=== PATIENT | male | born 1980 | race Caucasian/White ===

== ENCOUNTER 2021-01-15 21:16 | Emergency (ER) | payer OTHER ==
--- OUTSIDE RECORDS SUMMARY | 2021-01-15 21:19 | XMS REPORT | Continuity of Care Document ---
:1980 Author Organization [facility] Address [address] [place] [address] Dr. Kumar. [address] [place] [address] Care Team Providers Name Role Phone Pcp, Does Not Have A Primary Care Physician Emma Short MD Attending Clinician Nurse, [facility] Attending Clinician Unavailable Abdias RAMOS Attending Clinician Emma SHORT Attending Clinician Unavailable Jessica CARTY Attending Clinician Unavailable Payers Payer Name Policy Type Policy Number Effective Date Expiration Date S ource Problems Condition Condition Condition Status Onset Resolution Last Treating Co mments Source Name Details Category Date Date Treatment Clinician Date No known No known Disease Unive rs active active ity of problems problems [facility] Allergies, Adverse Reactions, Alerts Allergy Allergy Status Severity Reaction(s) Onset Inactive Treating Comm ents Source Name Type Date Date Clinician NO KNOWN Drug Active Univers ALLERGIE Class ity of S [facility] Social History Social Habit Start Date Stop Date Quantity Comments Source Exposure to Not sure [facility] SARS-CoV-2 (event) Medica l Branch Tobacco use and 2020-12-07 2020-12-07 Never used [facility] exposure 00:00:00 00:00:00 [facility] Tobacco Comment 2020-12-07 2020-12-07 Vape [facility] 00:00:00 00:00:00 [facility] Sex Ass[birth year] At [birth year] [facility] 00:00:00 00:00:00 [facility] Smoking Status Start Date Stop Date Source Unknown if ever smoked [facility] Current every day smoker 2020-12-07 00:00:00 Uni versity of [facility] Medications Ordered Filled Start Stop Current Ordering Indication Dosage Frequency Signature Comments Components Source Medication Medication Date Date Medication? Clinician (SIG) Name Name morpHINE 2020-02 No 4mg 4 mg, Slow Un lele injection 4 0-11 10-11 IV Push, ity of mg 01:45: 00:45 ONCE, 1 [place] 00 :00 dose, On Medical [place] [facility] 12/07/20 at 2044, STAT NaCl 0.9% 2020-02 No 500mL at 999 Univ ers (NS) bolus 0-11 10-11 mL/hr, 500 it y of infusion 01:45: 01:30 mL, IV [place] 500 mL 00 :00 Piggyback, [facility] ONCE, 1 Branch dose, On [place] 12/07/20 at 2044, STAT piperacilli 2020-02 No 3.375g 3.375 g, Univers n-tazobacta 0-11 10-10 IV ity of m (ZOSYN) 00:15: 23:45 [place], [place] 3.375 g in 00 :00 ONCE, 1 Medica l NaCl 0.9% dose, On Branch (NS) 100 mL Sun MINI-BAG 12/07/20 at 1915, Administer over 30 Minutes, 100 mL
Reas on for Anti-Infec tive: Documented Infection< br>Documen karishma Infection Site: Abdominal& lt;br>Dura tion of Therapy: 7 days ondansetron 2020-02 No 4mg 4 mg, Slow Univers (ZOFRAN 0-11 10-10 IV Push, ity of (PF)) 00:15: 23:14 ONCE, 1 [place] injection 4 00 :00 dose, On Medi [facility] 12/07/20 at 1915, CECE morpHINE 2020-02- No 4mg 4 mg, Slow Un lele injection 4 0-11 10-10 IV Push, ity of mg 00:15: 23:14 ONCE, 1 [place] 00 :00 dose, On Medical [facility] 12/07/20 at 1915, STAT iopamidol 2020-02- No [id number] 100mL 100 mL, Univers (ISOVUE 0-10 10-10 Intravenou ity o f 370-500 mL) 23:34: 23:35 s, ONCE, 1 [place] injection 00 :00 dose, On Medica l 100 mL [place] Branch 12/07/20 at 1900, Routine No known 2020-02 No Univers medications 0-10 ity of 17:43: [place] [facility] Branch ciprofloxac 2020-02 Yes [id number] 500mg Take 1 Univers in HCl 500 0-10 tablet by ity of mg tablet 00:00: mouth 2 [place] 00 (two) Medical times Branch daily. metroNIDAZO 2020-02 Yes [id number] 500mg Take 1 Univers LE 500 mg 0-10 tablet by ity o f tablet 00:00: mouth 2 [place] 00 (two) Medical times Branch daily. proMETHazin 2020-02 Yes [id number] 25mg Take 1 U nivers e 25 mg 0-10 tablet by ity of tablet 00:00: mouth [place] 00 every 6 Medical (six) Branch hours as needed for Nausea and Vomiting (N/V). Vital Signs Vital Name Observation Time Observation Value Comments Source Systolic blood 2020-12-08 01:01:00 122 mm[Hg] Univer sity [facility] Diastolic blood 2020-12-08 01:01:00 88 mm[facility]Hg] [facility] 2020-12-08 01:01:00 71 /min [facility] Respiratory rate 2020-12-08 01:01:00 18 /min [facility] Oxygen saturation in 2020-12-08 01:01:00 96 /min [facility] Arterial blood by [facility] Pulse oximetry Branch Body height 2020-12-08 00:08:00 177.8 cm [facility] Body weight 2020-12-08 00:08:00 88.451 kg [facility] BMI 2020-12-08 00:08:00 27.98 kg/m2 [facility] Body temperature 2020-12-08 00:02:00 36.94 [facility] 2020-12-07 22:43:00 129 mm[Hg] Univer sity of [facility] Diastolic blood 2020-12-07 22:43:00 88 mm[Hg] [facility] rate 2020-12-07 22:43:00 85 /min [facility] Body temperature 2020-12-07 22:43:00 36.94 [facility] Respiratory rate 2020-12-07 22:43:00 18 /min [facility] Body height 2020-12-07 22:43:00 177.8 cm [facility] Body weight 2020-12-07 22:43:00 88.451 kg [facility] BMI 2020-12-07 22:43:00 27.98 kg/m2 [facility] Oxygen saturation in 2020-12-07 22:43:00 97 /min [facility] Arterial blood by [facility] Pulse oximetry Branch Procedures Procedure Date / Time Performed Performing Clinician Denise self CT ABDOMEN PELVIS W 2020-12-07 23:44:43 Guzman Short [facility] CONTRAST [facility] COVID-19 (ID NOW RAPID 2020-12-07 23:11:00 Guzman Short [facility] TESTING) Medical Branch LIPASE 2020-12-07 23:07:00 Guzman Short [facility] COMP. METABOLIC PANEL 2020-12-07 23:07:00 Guzman Short [facility] ([id number]) [facility] CBC WITH DIFF 2020-12-07 23:07:00 Guzman Short [facility] URINALYSIS 2020-12-07 23:07:00 Guzman Short [facility] NOTICE OF PRIVACY 2020-12-07 22:55:20 Doctor Unassigned, No [facility] PRACTICES Name Medical Branch CONSENT/REFUSAL FOR 2020-12-07 22:54:54 Doctor Unassigned, No [facility] DIAGNOSIS AND Name Medical [place] TREATMENT Encounters Start End Encounter Admission Attending Care Care Encounter Source Date/Time Date/Time Type Type Clinicians Facility Department ID 2020-12-07 2020-12-07 Emergency MANISHA Short [id number] [facility] 17:57:00 20:49:00 [id number] [id number] Medi sherron 084 Branch 2020-12-07 2020-12-07 Nurse Nurse, Phong [facility] [id number] Univers 17:38:13 17:58:13 Visit Abdias [facility] [id number] [facility] [id number] Mumtaz as Levi?Blea [id number] Me dical [address] Medical Office Building 2020-12-07 2020-12-07 Emergency X SHORT, [facility] ERT [id number] Univers 17:57:00 17:57:00 GUZMAN [facility] 2020-12-07 2020-12-07 Outpatient R [facility] [id number] Univers 17:45:00 17:45:00 [id number] [facility] 2020-12-07 2020-12-07 [facility] [id number] Univers 17:20:00 17:20:00 MANJINDER schwarz o f [facility] Results Test Description Test Time Test Comments Results Result Comments Source COMP. METABOLIC PANEL (30061) 2020-12-08 00:02:21 Test Item Value Reference Range Interpretation Comme nts NA (test code = 8117230961) 138 mmol/L 135-145 K (test code = 9003439965) 4.3 mmol/L 3.5-5.0 CL (test code = 3008685935) 106 mmol/L 98-108 CO2 TOTAL (test code = 26 mmol/L 23-31 1618212750) AGAP (test code = 5530182961) 2-16 BUN (test code = 1188617963) 12 mg/dL 7-23 GLUCOSE (test code = 1393308176) 108 mg/dL 70-110 CREATININE (test code = 0.85 mg/dL 0.60-1.25 9834458617) TOTAL BILI (test code = 0.5 mg/dL 0.1-1.5 0590896300) CALCIUM (test code = 5891551538) 9.5 mg/dL 8.6-10.6 T PROTEIN (test code = 7.5 g/dL 6.3-8.2 8846662848) ALBUMIN (test code = 7085885302) 4.3 g/dL 3.5-5.0 ALK PHOS (test code = 2996965774) 82 U/L 34-122 ALTv (test code = 1742-6) 34 U/L 5-50 AST(SGOT) (test code = 25 U/L 13-40 9073012754) eGFR (test code = 5061127483) mL/min/1.73m2 ELLIS (test code = ELLIS) Association of Glomerular Filtration Rate (GFR) and Staging of Kidney Disease* + +--------- + ----+| GFR (mL/min/1.73 m2) ?| With Kidney Damage ?| ?Without Kidney Damage+ +--- + +| ?>90 ?| ?Stage one ?| ? Normal ?+ +-------- + -----+| ?60-89 ?| ?Stage two ?| ? Decreased GFR ? + +--------- + ----+| ?30-59 ?| ?Stage three ?| ? Stage three ? + +--------- + ----+| ?15-29 ?| ?Stage four ? | ? Stage four ?+ +-------- + -----+| ?<15 (or dialysis) ? ?| ?Stage five ? | ? Stage five ?+ +-------- + -----+ *Each stage assumes the associated GFR level has been in effect for at least three months. ?Stages 1 to 5, with or without kidney disease, indicate chronic kidney disease. Notes: Determination of stages one and two (with eGFR >59mL/min/1.73 m2) requires estimation of kidney damage for at least three months as defined by structural or functional abnormalities of the kidney, manifested by either:Pathological abnormalities or Markers of kidney damage (including abnormalities in the composition of the blood or urine or abnormalities in imaging tests). [facility]41 Test Item Value Reference Range Interpretation Comments LIPASE (test code = 6666281238) 85 U/L 0-220 Lab Interpretation (test code = Normal 24586-9) [facility] [id number] 23:31:16 Test Item Value Reference Range Interpretation Comments WBC (test code = See_Comment [Automated 6690-2) message] The sy stem which generated this result transmitted reference range : 4.20 - 10.70 10*3/?L. The reference range was not used to interpret this result as normal/abnormal . RBC (test code = See_Comment H [Automated 789-8) message] The sy stem which generated this result transmitted reference range : 4.26 - 5.52 10*6/?L. The reference range was not used to interpret this result as normal/abnormal . HGB (test code = 16.2 g/dL 12.2-16.4 718-7) HCT (test code = 47.1 % 38.4-49.3 4544-3) MCV (test code = 84.4 fL 81.7-95.6 787-2) MCH (test code = 29.0 pg 26.1-32.7 785-6) MCHC (test code = 34.4 g/dL 31.2-35.0 786-4) RDW-SD (test code = 38.2 fL 38.5-51.6 L 50242-5) RDW-CV (test code = 12.5 % 12.1-15.4 788-0) PLT (test code = See_Comment [Automated 777-3) message] The sy stem which generated this result transmitted reference range : 150 - 328 10*3/ ?L. The reference r yamilet was not used to interpret this result as normal/abnormal . MPV (test code = 10.0 fL 9.8-13.0 97904-2) NRBC/100 WBC (test See_Comment [Automat ed code = 3575740530) message] The system which generated this result transmitted reference range : 0.0 - 10.0 /100 WBCs. The refer ence range was not u sed to interpret th is result as normal/abnormal . NRBC x10^3 (test code <0.01 See_Comment [Auto mated = 7549122775) message] The s ystem which generated this result transmitted reference range : 10*3/?L. The reference range was not used to interpret this result as normal/abnormal . GRAN MAT (NEUT) % 70.4 % (test code = 770-8) IMM GRAN % (test code 0.60 % = 3066415542) LYMPH % (test code = 17.3 % 736-9) MONO % (test code = 10.6 % 5905-5) EOS % (test code = 0.6 % 713-8) BASO % (test code = 0.5 % 706-2) GRAN MAT x10^3(ANC) 6.84 10*3/uL 1.99-6.95 (test code = 7497425397) IMM GRAN x10^3 (test 0.06 10*3/uL 0.00-0.06 code = 3923942409) LYMPH x10^3 (test code 1.68 10*3/uL 1.09-3.23 = 731-0) MONO x10^3 (test code 1.03 10*3/uL 0.36-1.02 H = 742-7) EOS x10^3 (test code = 0.06 10*3/uL 0.06-0.53 711-2) BASO x10^3 (test code 0.05 10*3/uL 0.01-0.09 = 704-7) Lab Interpretation Abnormal (test code = 28644-2) [facility]"
[2021-01-15] MEDS ORDERED: MORPHINE 4 MG/ML SYR ONE (21:50)
[2021-01-15] MEDS ORDERED: ONDANSETRON 4 MG/2 ML VIAL ONE ×2 (21:51→21:57)
[2021-01-15] MEDS ORDERED: NA CHLORIDE 0.9% 1,000 ML ONE (21:52)
[2021-01-15 22:21] LABS: Basophils % 0.2 % (0-1.3); Hematocrit 43.8 % (39.6-49.0); Lymphocytes % 11.8 % (15.3-44.8); MPV 7.6 fL (7.6-11.3); RBC Red Blood Cell Count 5.09 M/uL (4.33-5.43)
[2021-01-15 22:27] LABS: Urine Blood Trace-intact (Negative); Urine Glucose Negative (Negative); Urine Protein Negative (Negative); Urine Specific Gravity >=1.030 (1.005-1.030)
[2021-01-15 22:39] LABS: Albumin 3.5 g/dL (3.4-5.0); Bilirubin Direct 0.1 mg/dL (0-0.2); Bilirubin Total 0.6 mg/dL (0.2-1.0); Potassium 3.9 mmol/L (3.5-5.1)
[2021-01-15 22:43] LABS: Barbiturates NEGATIVE (NEGATIVE); Benzodiazepines NEGATIVE (NEGATIVE); Cocaine NEGATIVE (NEGATIVE); METHAMPHETAM NEGATIVE (NEGATIVE); Methadone NEGATIVE (NEGATIVE); Opiates NEGATIVE (NEGATIVE); Phencyclidine NEGATIVE (NEGATIVE); THC Cannibis NEGATIVE (NEGATIVE)
[2021-01-16] MEDS ORDERED: MORPHINE 4 MG/ML SYR ONE (00:03)
[2021-01-16] MEDS ORDERED: Levofloxacin 750mg IV 750 MG/150 ML BAG IV ONE (00:11)
[2021-01-16] MEDS ORDERED: METRONIDAZOLE 500mg IVPB 500 MG/100 ML BAG IV ONE (00:12)
--- NOTE | 2021-01-16 01:42 | EDPHYS ---
Physician Documentation [facility] Name: Jaime Darden Age: 41 yrs Sex: Male : 1980 Arrival Date: 01/15/2021 Time: 21:21 Bed 17 Private MD: ED Physician Wilfredo Fonseca HPI: 01/15 21:53 This 41 yrs old Male presents to ER via Ambulatory with complaints of Abdominal Pain. mh7 21:53 The patient presents with abdominal pain in the lower abdomen. Onset: The mh7 symptoms/episode began/occurred today, at 11:00. The symptoms do not radiate. Associated signs and symptoms: Pertinent positives: dysuria, nausea, Pertinent negatives: anorexia, blood in stools, chest pain, constipation, diarrhea, fever, headache, hematuria, palpitations, shortness of breath, testicular pain, vomiting, vomiting blood. The symptoms are described as intermittent, vague, waxing/waning. Modifying factors: The symptoms are alleviated by nothing, the symptoms are aggravated by nothing. Severity of pain: At its worst the pain was moderate today, in the emergency department the pain is unchanged. Historical: - Allergies: 22:10 Tramadol HCl; cc4 - Home Meds: 21:27 Flexeril 10 mg Oral tab once daily [Active]; ld1 - PMHx: 21:27 tension headaches; Diverticulitis; ld1 - PSHx: 21:27 Appendectomy; ld1 - Immunization history:: Adult Immunizations up to date, Client reports receiving the 2nd dose of the Covid vaccine. - Social history:: Smoking status: Patient reports the use of cigarette tobacco products, denies chronic smoking, but will smoke occasionally, Patient/guardian denies using alcohol, street drugs. ROS: 21:53 Constitutional: Negative for fever, chills, and weight loss, Eyes: Negative for injury, mh7 pain, redness, and discharge, ENT: Negative for injury, pain, and discharge, Neck: Negative for injury, pain, and swelling, Cardiovascular: Negative for chest pain, palpitations, and edema, Respiratory: Negative for shortness of breath, cough, wheezing, and pleuritic chest pain, Back: Negative for injury and pain, : Negative for injury, bleeding, discharge, and swelling, MS/Extremity: Negative for injury and deformity, Skin: Negative for injury, rash, and discoloration, Neuro: Negative for headache, weakness, numbness, tingling, and seizure, Psych: Negative for depression, anxiety, suicide ideation, homicidal ideation, and hallucinations, Allergy/Immunology: Negative for hives, rash, and allergies, Endocrine: Negative for neck swelling, polydipsia, polyuria, polyphagia, and marked weight changes, Hematologic/Lymphatic: Negative for swollen nodes, abnormal bleeding, and unusual bruising. Exam: 21:53 Head/Face: Normocephalic, atraumatic. Eyes: Pupils equal round and reactive to light, mh7 extra-ocular motions intact. Lids and lashes normal. Conjunctiva and sclera are non-icteric and not injected. Cornea within normal limits. Periorbital areas with no swelling, redness, or edema. Neck: Trachea midline, no thyromegaly or masses palpated, and no cervical lymphadenopathy. Supple, full range of motion without nuchal rigidity, or vertebral point tenderness. No Meningismus. Chest/axilla: Normal chest wall appearance and motion. Nontender with no deformity. No lesions are appreciated. Cardiovascular: Regular rate and rhythm with a normal S1 and S2. No gallops, murmurs, or rubs. Normal PMI, no JVD. No pulse deficits. Respiratory: Lungs have equal breath sounds bilaterally, clear to auscultation and percussion. No rales, rhonchi or wheezes noted. No increased work of breathing, no retractions or nasal flaring. 21:53 Back: No spinal tenderness. No costovertebral tenderness. Full range of motion. Skin: Warm, dry with normal turgor. Normal color with no rashes, no lesions, and no evidence of cellulitis. MS/ Extremity: Pulses equal, no cyanosis. Neurovascular intact. Full, normal range of motion. Neuro: Awake and alert, GCS 15, oriented to person, place, time, and situation. Cranial nerves II-XII grossly intact. Motor strength 5/5 in all extremities. Sensory grossly intact. Cerebellar exam normal. Normal gait. Psych: Awake, alert, with orientation to person, place and time. Behavior, mood, and affect are within normal limits. 21:53 Constitutional: The patient appears in no acute distress, alert, awake, uncomfortable. 21:53 Abdomen/GI: Inspection: abdomen appears normal, Bowel sounds: normal, in all quadrants, Palpation: moderate abdominal tenderness, in all quadrants, mass, is not appreciated, rebound tenderness, is not appreciated, voluntary guarding, is not appreciated, involuntary guarding, is not appreciated, no appreciated organomegaly, Rectal exam: the exam is deferred, because of patient request, Indicators: McBurney's point is not tender, Velasquez's sign is negative, Rovsing's sign is negative, Obturator sign is negative, Psoas sign is negative, Liver: no appreciated palpable abnormalities, Hernia: not appreciated. Vital Signs: 21:25 BP 133 / 94; Pulse 98; Resp 20; Temp 99.4(TE); Pulse Ox 97% on R/A; Weight 90.72 kg; ld1 Height 5 ft. 10 in. (177.80 cm); Pain 9/10; 21:58 BP 130 / 89; Pulse 90; Resp 18; Pulse Ox 99% on R/A; cc4 22:30 BP 118 / 78; Pulse 87; Resp 18; Temp 99.1(O); Pulse Ox 99% on R/A; cc4 23:30 BP 117 / 80; Pulse 99; Resp 20; Pulse Ox 98% on R/A; cc4 01/16 00:30 BP 125 / 81; Pulse 89; Resp 18; Pulse Ox 96% on R/A; cc4 01:30 BP 120 / 86; Pulse 91; Resp 20; Pulse Ox 96% on R/A; cc4 02:30 BP 111 / 65; Pulse 89; Resp 18; Pulse Ox 96% on R/A; cc4 03:33 BP 105 / 69; Pulse 99; Resp 18; Temp 99.1(O); Pulse Ox 96% on R/A; cc4 01/15 21:25 Body Mass Index 28.70 (90.72 kg, 177.80 cm) ld1 MDM: 00:55 Physician consultation: Michael Rod MD was contacted at 00:45, regarding patient's mh7 condition, after a discussion of the case, a recommendation for transfer for higher level of care is made, Recommends transfer for treatment by a colorectal surgeon.. 01:40 Differential diagnosis: bowel obstruction, diverticulitis, non-specific abd pain, mh7 pancreatitis, Ureterolithiasis, urinary tract infection. Data reviewed: vital signs, nurses notes, lab test result(s), CBC, electrolytes, urinalysis, radiologic studies, CT scan. Data interpreted: Pulse oximetry: on room air is 99 %. Interpretation: normal. Counseling: I had a detailed discussion with the patient and/or guardian regarding: the historical points, exam findings, and any diagnostic results supporting the discharge/admit diagnosis, lab results, radiology results, the need to transfer to another facility, for higher level of care. 01:42 Patient medically screened. [facility] 01/15 21:44 Order name: Basic Metabolic Panel; Complete Time: 22:58 [facility] 01/15 21:44 Order name: CBC with Diff; Complete Time: 22:58 [facility] 01/15 21:44 Order name: Hepatic Function; Complete Time: :58 [facility] 01/15 21:44 Order name: Lipase; Complete Time: 22:58 [facility] 01/15 21:44 Order name: UDS; Complete Time: 22:58 [facility] 01/15 22:27 Order name: Urine Dipstick-Ancillary; Complete Time: 22:58 EDNM 01/15 21:44 Order name: CT Abd/Pelvis - IV Contrast Only [facility] 01/16 00:56 Order name: COVID-19 SARS RT PCR (Document "Date of Onset" if Symptomatic); Complete la1 Time: 02:05 01/15 21:44 Order name: IV Saline Lock; Complete Time: 22:17 [facility] 01/15 21:44 Order name: Labs collected and sent; Complete Time: 22:17 [facility] 01/15 21:44 Order name: Urine Dipstick-Ancillary (obtain specimen); Complete Time: 22:18 [facility] 01/15 21:44 Order name: EKG; Complete Time: 21:45 [facility] 01/15 21:44 Order name: EKG - Nurse/Tech; Complete Time: 22:17 [facility] Administered Medications: 01/15 22:10 Drug: NS 0.9% 1000 ml Route: IV; Rate: 1000 ml; Site: right antecubital; cc4 22:10 Drug: morphine 4 mg Route: IVP; Site: right antecubital; cc4 22:30 Follow up: Response: No adverse reaction; Pain is decreased cc4 22:10 Drug: Zofran (Ondansetron) 4 mg Route: IVP; Site: right antecubital; cc4 22:30 Follow up: Response: No adverse reaction cc4 01/16 00:10 Drug: morphine 4 mg Route: IVP; Site: right antecubital; cc4 00:30 Follow up: Response: No adverse reaction; Pain is decreased cc4 00:15 Drug: Flagyl (metroNIDAZOLE) 500 mg Volume: 100 ml; Route: IVPB; Rate: 200 ml/hr; cc4 Infused Over: 30 mins; Site: right antecubital; 00:50 Follow up: Response: No adverse reaction; IV Status: Completed infusion; IV Intake: cc4 100ml 00:50 Drug: LevaQUIN (levofloxacin) 750 mg Route: IVPB; Site: right antecubital; cc4 02:00 Follow up: Response: No adverse reaction; IV Status: Completed infusion; IV Intake: cc4 150ml 02:45 Drug: Dilaudid (HYDROmorphone) 1 mg Route: IVP; Site: right antecubital; cc4 03:33 Follow up: Response: No adverse reaction; Pain is decreased cc4 Disposition Summary: 01/16/21 01:42 Transfer Ordered Transfer Location: [place] [address] Reason: Higher level of care [facility] Condition: Stable [facility] Problem: new [facility] Symptoms: are unchanged [facility] Accepting Physician: Dr. Pena(01/16/21 05:08) cc4 Diagnosis - Diverticulitis of large intestine with perforation and abscess [facility] Forms: - Medication Reconciliation Form 7 - SBAR form 7 Signatures: Dispatcher [employer] Wilfreod Pemberton MD MD 7 Silvia Pruett RN RN ld1 Lise Thomas RN RN cc4 Corrections: (The following items were deleted from the chart) 01/15 22:45 21:27 Allergies: No Known Allergies; ld1 cc4 01/16 01:19 00:58 CORONAVIRUS+MR.LAB.BRZ ordered. EDNM EDNM 05:08 01:42 Dr. Pena 7 4
--- NOTE | 2021-01-16 01:42 | ER ---
Nurse's Notes [facility] Name: Jaime Darden Age: 41 yrs Sex: Male : 1980 Arrival Date: 01/15/2021 Time: 21:21 Bed 17 Private MD: Diagnosis: Diverticulitis of large intestine with perforation and abscess Presentation: 01/15 21:25 Chief complaint: Patient states: lower abdominal pain beginning today at 1100. Pt ld1 reports having a history of diverticulitis. Coronavirus screen: Client presents with at least one sign or symptom that may indicate coronavirus-19. Standard/surgical mask placed on the client. Ebola Screen: No symptoms or risks identified at this time. Initial Sepsis Screen: Does the patient meet any 2 criteria? No. Patient's initial sepsis screen is negative. Does the patient have a suspected source of infection? No. Patient's initial sepsis screen is negative. Risk Assessment: Do you want to hurt yourself or someone else? Patient reports no desire to harm self or others. Onset of symptoms was January 15, 2021. 21:25 Method Of Arrival: Ambulatory ld1 21:25 Acuity: FER 3 ld1 Triage Assessment: 21:27 General: Appears in no apparent distress. uncomfortable, Behavior is calm, cooperative, ld1 appropriate for age. Pain: Complains of pain in right lower quadrant and left lower quadrant Pain does not radiate. Pain currently is 9 out of 10 on a pain scale. Quality of pain is described as stabbing, throbbing, Pain began suddenly, Is continuous. EENT: No signs and/or symptoms were reported regarding the EENT system. Neuro: Level of Consciousness is awake, alert, obeys commands, Oriented to person, place, time, situation, Appropriate for age. Cardiovascular: Capillary refill < 3 seconds Patient's skin is warm and dry. Respiratory: Airway is patent Respiratory effort is even, unlabored, Respiratory pattern is regular, symmetrical. GI: Abdomen is flat, non-distended, Reports lower abdominal pain, constipation. : No signs and/or symptoms were reported regarding the genitourinary system. Derm: No signs and/or symptoms reported regarding the dermatologic system. Musculoskeletal: No signs and/or symptoms reported regarding the musculoskeletal system. Historical: - Allergies: 22:10 Tramadol HCl; cc4 - Home Meds: 21:27 Flexeril 10 mg Oral tab once daily [Active]; ld1 - PMHx: 21:27 tension headaches; Diverticulitis; ld1 - PSHx: 21:27 Appendectomy; ld1 - Immunization history:: Adult Immunizations up to date, Client reports receiving the 2nd dose of the Covid vaccine. - Social history:: Smoking status: Patient reports the use of cigarette tobacco products, denies chronic smoking, but will smoke occasionally, Patient/guardian denies using alcohol, street drugs. Screenin:10 Abuse screen: Denies threats or abuse. Nutritional screening: No deficits noted. cc4 Tuberculosis screening: No symptoms or risk factors identified. Fall Risk None identified. Assessment: 22:00 General: Appears distressed, uncomfortable, Behavior is cooperative, anxious, Eyes cc4 reddened; appears to have been crying.. Pain: Complains of pain in abdomen Pain does not radiate. Pain currently is 9 out of 10 on a pain scale. at worst was 10 out of 10 on a pain scale. level that patient reports is acceptable is 0 out of 10 on a pain scale. Quality of pain is described as crampy, sharp. Neuro: No deficits noted. Level of Consciousness is awake, alert, obeys commands, Oriented to person, place, time, situation. Cardiovascular: No deficits noted. Heart tones S1 S2 Rhythm is sinus rhythm. Respiratory: No deficits noted. Airway is patent Respiratory effort is even, unlabored, Respiratory pattern is regular, symmetrical. GI: Abdomen is flat, non-distended, Bowel sounds present X 4 quads. Abd is soft X 4 quads Abdomen is tender to palpation in umbilical area and right upper quadrant Patient currently denies diarrhea, nausea, vomiting, reports h/o diverticulitis. : No signs and/or symptoms were reported regarding the genitourinary system. EENT: Eyes are tearing on outer aspect of conjuctiva of right eye, iris of right eye, inner aspect of conjuctiva of right eye, outer aspect of conjuctiva of left eye, iris of left eye and inner aspect of conjunctiva of left eye Reddened.. Derm: No deficits noted. Skin is intact. 22:00 Musculoskeletal: No deficits noted. Capillary refill < 3 seconds, Range of motion: cc4 intact in all extremities. 22:10 Reassessment: No changes from previously documented assessment. IV hung to saline lock cc4 right AC \\T\\ infusing \\T\\ bolus rate with no s/sx's of infiltration; Morphine 4 mg \\T\\ zofran 4 mg given IVP. 22:30 Reassessment: Patient states feeling better. reports decreasing abdominal pain to 6/10 cc4 on pain scale.. 22:45 Reassessment: To CT via stretcher. cc4 23:00 Reassessment: Returned from CT via stretcher. cc4 01/16 00:10 Reassessment: Awake \\T\\ reports increasing pain 9/10 on pain scale of abdomen; morphine 4 cc4 mg given slow IVP as ordered. 00:15 Reassessment: Reports abdominal pain decreasing to 8/10 on pain scale; Flagyl 500 mg cc4 hung to saline lock right AC \\T\\ infusing \\T\\ 200 ml/hr/pump with no s/sx's of infiltration. 00:50 Reassessment: Awake \\T\\ reports abd. pain has decreased to 7/10 on pain scale; IVPB cc4 Flagyl infused; IVPB Levaquin 750 mg hung \\T\\ infusing \\T\\ 150 ml/hr/pump with no s/sx's of infiltration; VSS. 01:50 Reassessment: IVPB Levaquin infused; resting quietly; NAD. cc4 02:45 Reassessment: c/o abdominal pain 9/10 on pain scale; Dilaudid 1 mg given IVP; [facility] instructed on transfer to [facility] with v/u \\T\\ transfer via ambulance form signed; VSS. 02:45 Reassessment: Report telephoned to Eugenia Mcintyre RN of [facility] in [address] 03:33 Reassessment: Awake/alert; reports abdominal pain decreasing to 7/10 on pain scale; [address] [facility] arrived \\T\\ here transferring pt to [facility]; report given to manager laundry; VSS. Vital Signs: 01/15 21:25 BP 133 / 94; Pulse 98; Resp 20; Temp 99.4(TE); Pulse Ox 97% on R/A; Weight 90.72 kg; ld1 Height 5 ft. 10 in. (177.80 cm); Pain 9/10; 21:58 BP 130 / 89; Pulse 90; Resp 18; Pulse Ox 99% on R/A; cc4 22:30 BP 118 / 78; Pulse 87; Resp 18; Temp 99.1(O); Pulse Ox 99% on R/A; cc4 23:30 BP 117 / 80; Pulse 99; Resp 20; Pulse Ox 98% on R/A; cc4 01/16 00:30 BP 125 / 81; Pulse 89; Resp 18; Pulse Ox 96% on R/A; cc4 01:30 BP 120 / 86; Pulse 91; Resp 20; Pulse Ox 96% on R/A; cc4 02:30 BP 111 / 65; Pulse 89; Resp 18; Pulse Ox 96% on R/A; cc4 03:33 BP 105 / 69; Pulse 99; Resp 18; Temp 99.1(O); Pulse Ox 96% on R/A; cc4 01/15 21:25 Body Mass Index 28.70 (90.72 kg, 177.80 cm) ld1 ED Course: 01/15 21:21 Patient arrived in ED. bp1 21:27 Triage completed. ld1 21:27 Arm band placed on left wrist. ld1 21:30 Wilfredo Fonseca MD is Attending Physician. mh7 21:42 Lise Thomas, ROXANA is Primary Nurse. cc4 22:15 Initial lab(s) drawn, by mt, sent to lab. Inserted saline lock: 20 gauge in right 5 antecubital area, using aseptic technique. Blood collected. 22:16 Patient has correct armband on for positive identification. Bed in low position. Call [facility] light in reach. Side rails up X 1. Warm blanket given. investigative writer on. Pulse ox on. NIBP on. 22:16 Urine collected: clean catch specimen, clear, EKG done, by ED staff, reviewed by [facility] Wilfredo Fonseca MD. 22:17 Basic Metabolic Panel Sent. 5 22:17 CBC with Diff Sent. 5 22:18 Hepatic Function Sent. 5 22:18 Lipase Sent. 5 22:33 UDS Sent. 5 22:39 CT Abd/Pelvis - IV Contrast Only Sent. cc4 23:00 CT Abd/Pelvis - IV Contrast Only In Process Unspecified. EDCT 23:50 Dr. Fonseca requested to contact General Surgeon controls operator molded goods, call made to Dr. Rod, no ds4 answer and left message. 01/16 00:[address] Rod again, no answer. cs9 01:00 Dr. Fonseca spoke to Dr. Rod on the phone. Initiated transfer to [address] Spoke with Sangeeta at [phone] to initiate. 01:01 COVID-19 SARS RT PCR (Document "Date of Onset" if Symptomatic) Sent. cc4 01:32 doctor to doctor call made at [phone]. cs9 02:42 [facility], [address] [facility], [address]. [address] [facility] hospitalist is Dr. Kelly. Accepting surgeon is Dr. Mendiola. Patient will be going to room 1538. 03:23 [facility] notified for transfer. cs9 03:33 No provider procedures requiring assistance completed. cc4 03:33 Patient transferred, IV remains in place. cc4 Administered Medications: 01/15 22:10 Drug: NS 0.9% 1000 ml Route: IV; Rate: 1000 ml; Site: right antecubital; cc4 22:10 Drug: morphine 4 mg Route: IVP; Site: right antecubital; cc4 22:30 Follow up: Response: No adverse reaction; Pain is decreased cc4 22:10 Drug: Zofran (Ondansetron) 4 mg Route: IVP; Site: right antecubital; cc4 22:30 Follow up: Response: No adverse reaction cc4 01/16 00:10 Drug: morphine 4 mg Route: IVP; Site: right antecubital; cc4 00:30 Follow up: Response: No adverse reaction; Pain is decreased cc4 00:15 Drug: Flagyl (metroNIDAZOLE) 500 mg Volume: 100 ml; Route: IVPB; Rate: 200 ml/hr; cc4 Infused Over: 30 mins; Site: right antecubital; 00:50 Follow up: Response: No adverse reaction; IV Status: Completed infusion; IV Intake: cc4 100ml 00:50 Drug: LevaQUIN (levofloxacin) 750 mg Route: IVPB; Site: right antecubital; cc4 02:00 Follow up: Response: No adverse reaction; IV Status: Completed infusion; IV Intake: cc4 150ml 02:45 Drug: Dilaudid (HYDROmorphone) 1 mg Route: IVP; Site: right antecubital; cc4 03:33 Follow up: Response: No adverse reaction; Pain is decreased cc4 Intake: 00:50 IV: 100ml; Total: 100ml. cc4 02:00 IV: 150ml; Total: 250ml. cc4 Outcome: 01:42 ER care complete, transfer ordered by . [facility] 03:33 Transferred by ground EMS to [facility], Transfer form completed. cc4 X-rays sent w/ patient. Note: Lab reports 03:33 Condition: stable 03:33 Instructed on the need for transfer. 05:08 Patient left the ED. cc4 Signatures: Dispatcher [employer] EDMS David Sandoval 4 Mila Rod 5 Marie Combs Maurice, MD MD 7 Silvia Pruett RN RN ld1 Lise Thomas RN RN cc4 Carlotta Berg 9 Corrections: (The following items were deleted from the chart) 01/15 22:45 21:27 Allergies: No Known Allergies; ld1 cc4 22:59 22:00 Musculoskeletal: No deficits noted. Capillary refill < 3 seconds, Range of cc4 motion: intact in all extremities, # 20 g angiocath inserted right AC x1 attempt with no difficulty, margaret. well; blood drawn \\T\\ sent to lab; EKG done. cc4 23:02 22:10 Musculoskeletal: No deficits noted. Capillary refill < 3 seconds, Range of cc4 motion: intact in all extremities, # 20 g angiocath inserted right AC x 1 attempt \\T\\ converted to saline lock; blood drawn \\T\\ sent to lab, margaret. well; EKG done. cc4 01/16 01:19 01:01 CORONAVIRUS+MR.[email or web address].BRZ drawn and sent. 4 EDMS
[2021-01-16] MEDS ORDERED: HYDROMORPHONE HCL 1 MG/ML INJ ONE (02:31)
[2021-01-16 05:21] VITALS: TEMP 99.1
[2021-01-16 05:25] VITALS: O2SAT 96
[2021-01-16 05:29] VITALS: BP 105/69
--- NOTE | 2021-01-16 10:49 | RAD REPORT ---
EXAM DESCRIPTION: CT - Abdomen Pelvis W Contrast - 01/16/2021 6:26 am ADDENDUM #1 Critical findings discussed with Dr. Wilfredo Fonseca. Electronically signed by: Karyn Ace MD 01/16/2021 12:02 AM PERINATAL TECHNICIAN End of Addendum EXAM DESCRIPTION: Abdomen Pelvis W Contrast CLINICAL HISTORY: 41 years Male ABD PAIN COMPARISON: None TECHNIQUE: Images were obtained in axial, sagittal, and coronal planes. Intravenous contrast was adm inistered. Arterial and venous phase imaging was performed. This exam was performed according to our departmental dose-optimization program which includes use of Automated Exposure Control, adjustment of the mA and/or kV according to patient size and/or use o f iterative reconstruction technique. FINDINGS: No abnormality involving the liver, pancreas, gallbladder, or adrenal glands bilaterally. Spleen is prominent in size measuring 12.3 cm in greatest dimension. Small hiatal hernia. Duodenal di verticulum. I No obstructing renal or ureteral calculi bilaterally. No hydronephrosis bilaterally. Unremarkable robbie dder. Marked diverticulosis distal left colon with associated mesenteric stranding and edema consistent wit h acute diverticulitis sigmoid colon. Extraluminal air collections are present consistent with perfor ation. Well-circumscribed air fluid collection is seen within the pelvis measuring 5.5 x 0.9 x 3.5 cm consistent with abscess. Additional marked diverticulosis throughout the colon. Surgical clips right lower abdomen likely related to prior appendectomy. No bowel obstruction. No abnormality of abdominal aorta or portal vein. No adenopathy. No acute osseous pathology. Atelectatic change lower lobes bilaterally. Atelectatic change lower lungs bilaterally. IMPRESSION: Findings positive for acute diverticulitis distal left colon with associated perforation and 5.5 cm abscess. Electronically signed by: Karyn Ace MD 01/15/2021 11:29 PM PERINATAL TECHNICIAN Due to temporary technical issues with the PACS/Fluency reporting system, reports are being signed by the in house radiologist without review as a courtesy to ensure prompt reporting. The interpreting r adiologist is fully responsible for the content of the report.
--- NOTE | 2021-01-16 13:18 | EKG ---
Test Date: 2021-01-15 Test Time: 22:08:21 Outside Sales Inspector: KAMRON MEASUREMENT RESULTS: Intervals: Rate: 82 WA: 168 QRSD: 90 QT: 350 QTc: 408 Christine: P: 43 WA: 168 QRS: 52 T: 43 INTERPRETIVE STATEMENTS: Normal sinus rhythm Normal ECG No previous ECG available for comparison Electronically Signed On 01-16-21 13:16:12 POLE SHAVER HELPER by Willy Diaz
== END 2021-01-16 05:08 | disposition short-term general hospital (02) ==
LOC: ER 21:16
DX: K57.20 Diverticulitis of large intestine with perforation and abscess without bleeding (principal); Z20.822 Contact with and (suspected) exposure to COVID-19
CPT/HCPCS: 96365; 96367; 93005; 85025; 80048; 36415; 80076; 81003; 83690; 80307; 74177; 96375; 99285; U0003; Q9967; J1170; J7030; J2405

== ENCOUNTER 2021-01-29 14:33 | Emergency (ER) | payer OTHER ==
[2021-01-29] MEDS ORDERED: TETANUS & DIPHTHERIA TOX,ADULT 0.5 ML VIAL ONE (14:36)
--- OUTSIDE RECORDS SUMMARY | 2021-01-29 14:36 | XMS REPORT | Continuity of Care Document ---
:1980 Author Organization [facility] t Address [address] [place] [address] Care Team Providers Name Role Phone Pcp, Does Not Have A Primary Care Physician Tristin LUJAN Attending Clinician Unavailable LORENA VILLALOBOS Attending Clinician Unavailable Cathi JIMÉNEZ T Attending Clinician Nurse, [facility] Attending Clinician Unavailable Abdias RAMOS Attending Clinician Emma SHORT Attending Clinician Unavailable Jessica CARTY Attending Clinician Unavailable FEDERICA Admitting Clinician Unavailable Payers Payer Name Policy Type Policy Number Effective Date Expiration Date Yobany boyce [facility] POS [id number] 2020 00:00:00 SELECT CHOICE Problems Condition Condition Condition Status Onset Resolution Last Treating Co mments Source Name Details Category Date Date Treatment Clinician Date No known No known Disease Unive rs active active ity of problems problems [facility] Allergies, Adverse Reactions, Alerts Allergy Allergy Status Severity Reaction(s) Onset Inactive Treating Comm ents Source Name Type Date Date Clinician TRAMADOL Allergy Active Other 2020-02 SLE 03-18 00:00: 00 NO KNOWN Drug Active Univers ALLERGIE Class ity of S [facility] Social History Social Habit Start Date Stop Date Quantity Comments Source Exposure to Not sure [facility] SARS-CoV-2 (event) Medica Branch Tobacco use and 2020-12-07 2020-12-07 Never used [facility] exposure 00:00:00 00:00:00 [facility] Branch Tobacco Comment 2020-12-07 2020-12-07 Vape [facility] 00:00:00 00:00:00 [facility] Sex Assigned At [birth year] [facility] 00:00:00 00:00:00 [facility] Smoking Status Start Date Stop Date Source Unknown if ever smoked [facility] Current every day smoker 2020-12-07 [facility]:00[facility]00 [facility] Ordered Filled Start Stop Current Ordering Indication Dosage Frequency Signature Comments Components Source Medication Medication Date Date Medication? Clinician (SIG) Name Name morpHINE 2020-02 No 4mg 4 mg, Slow Un lele injection 4 0- 10-11 IV Push, ity of mg 01:45: 00:45 ONCE, 1 [place] 00 :00 dose, On Medical [place] Branch 12/07/20 at 2044, STAT NaCl 0.9% 2020-02 No 500mL at 999 Univ ers (NS) bolus 0-11 10-11 mL/hr, 500 it y of infusion 01:45: 01:30 mL, IV [place] 500 mL 00 :00 Piggyback, Medical ONCE, 1 Branch dose, On [place] 12/07/20 at 2044, STAT piperacilli 2020-02- No 3.375g 3.375 g, Univers n-tazobacta 0- 10-10 IV ity of m (ZOSYN) 00:15: 23:45 [place]gyback, [place] 3.375 g in 00 :00 ONCE, 1 Medica l NaCl 0.9% dose, On Branch (NS) 100 mL [place] MINI-BAG 12/07/20 at 1915, Administer over 30 Minutes, 100 mL
Reas on for Anti-Infec tive: Documented Infection< br>Documen galilea Infection Site: Abdominal& lt;br>Dura tion of Therapy: 7 days ondansetron 2020-02 No 4mg 4 mg, Slow Univers (ZOFRAN 0-11 10-10 IV Push, ity of (PF)) 00:15: 23:14 ONCE, 1 [place] injection 4 00 :00 dose, On Medi sherron mg [place] Branch 12/07/20 at 1915, CECE morpHINE 2020-02- No 4mg 4 mg, Slow Un lele injection 4 0-11 10-10 IV Push, ity of mg 00:15: 23:14 ONCE, 1 [place] 00 :00 dose, On Medical [place] Branch 12/07/20 at 1915, STAT iopamidol 2020-02- No [id number] 100mL 100 mL, Univers (ISOVUE 0-10 10-10 Intravenou ity o f 370-500 mL) 23:34: 23:35 s, ONCE, 1 [place] injection 00 :00 dose, On Medica l 100 mL [place] Branch 12/07/20 at 1900, Routine No known 2020-02 No Univers medications 0-10 ity of 17:43: [address] Branch ciprofloxac 2020-02 Yes [id number] 500mg Take 1 Univers in HCl 500 0-10 tablet by ity of mg tablet 00:00: mouth 2 [place] (two) Medical times Branch daily. metroNIDAZO 2020-02 Yes [id number] 500mg Take 1 Univers LE 500 mg 0-10 tablet by ity o f tablet 00:00: mouth 2 [place] (two) Medical times Branch daily. proMETHazin 2020-02 Yes [id number] 25mg Take 1 U nivers e 25 mg 0-10 tablet by ity of tablet 00:00: mouth 00 every 6 Medical (six) Branch hours as needed for Nausea and Vomiting (N/V). Vital Signs Vital Name Observation Time Observation Value Comments Source HEIGHT 2021-01-16 05:09:00 170.2 cm WEIGHT 2021-01-16 05:09:00 90.719 kg HEIGHT 2021-01-16 05:09:00 170.2 cm WEIGHT 2021-01-16 05:09:00 90.719 kg Systolic blood 2020-12-08 01:01:00 122 mm[Hg] Univer sity of pressure [facility] Diastolic blood 2020-12-08 01:01:00 88 mm[Hg] Unive rsity of [facility] Heart rate 2020-12-08 01:01:00 71 /min Universi ty of [facility] Respiratory rate 2020-12-08 01:01:00 18 /min [facility] Oxygen saturation in 2020-12-08 01:01:00 96 /min University of Arterial blood by [facility] Pulse oximetry Branch Body height 2020-12-08 00:08:00 177.8 cm Universi ty of [facility] Body weight 2020-12-08 00:08:00 88.451 kg Universi ty of [facility] BMI 2020-12-08 00:08:00 27.98 kg/m2 Universi ty of [facility] Body temperature 2020-12-08 00:02:00 36.94 [facility] Systolic blood 2020-12-07 22:43:00 129 mm[Hg] Univer sity of [facility] Diastolic blood 2020-12-07 22:43:00 88 mm[facility]Hg[facility] 2020-12-07 22:43:00 85 /min Universi ty of [facility] Body temperature 2020-12-07 22:43:00 36.94 Zara [facility] of [facility] Respiratory rate 2020-12-07 22:43:00 18 /min [facility] Body height 2020-12-07 22:43:00 177.8 cm Universi ty of [facility] Body weight 2020-12-07 22:43:00 88.451 kg Universi ty [facility] BMI 2020-12-07 22:43:00 27.98 kg/m2 Universi ty [facility] Oxygen saturation in 2020-12-07 22:43:00 97 /min [place] of Arterial blood by [facility] Pulse oximetry Branch Procedures Procedure Date / Time Performed Performing Clinician Denise e CT ABDOMEN PELVIS W 2020-12-07 23:44:43 Guzman Short [facility] CONTRAST [facility] COVID-19 (ID NOW RAPID 2020-12-07 23:11:00 Guzman Short [facility] TESTING) Medical Branch LIPASE 2020-12-07 23:07:00 Guzmna Short [facility] COMP. METABOLIC PANEL 2020-12-07 23:07:00 Guzman Short [facility] ([id number]) [facility] CBC WITH DIFF 2020-12-07 23:07:00 Guzman Short [facility] URINALYSIS 2020-12-07 23:07:00 Guzman Short [facility] NOTICE OF PRIVACY 2020-12-07 22:55:20 [facility], [facility] CONSENT/REFUSAL FOR 2020-12-07 22:54:54 Doctor Un[facility]igned, [facility] [place] [facility] DI[facility] AND Name [facility] TREATMENT Encounters Start End Encounter Admission Attending Care Care Encounter Source Date/Time Date/Time Type Type Clinicians Facility Department ID 2021-01-16 2021-01-19 [facility] [id number] [facility] 05:02:00 12:25:00 BRITTANY 2020-12-07 2020-12-07 Emergency Cathi [facility] [id number] Univers 17:57:00 20:49:00 Guzman [facility] [id number] ity [facility] [id number] [place] [facility] [id number] [address] 2020-12-07 2020-12-07 Nurse Nurse, [facility] [id number] Univers 17:38:13 17:58:13 [facility] [id number] 3.10 ity [facility] [id number] Mumtaz as Levi?Blea [id number] [address] Medical Office Building 2020-12-07 2020-12-07 Emergency X CATHI [facility] ERT [id number] Univers 17:57:00 17:57:00 GUZMAN schwarz [facility] 2020-12-07 2020-12-[address] [facility] [id number] Univers 17:45:00 17:45:00 [id number] [facility] 2020-12-07 2020-12-[address] [facility] [id number] Univers 17:20:00 17:20:00 MANJINDER schwarz o raheel [facility] Results Test Description Test Time Test Comments Results Result Comments Source BLOOD CULTURE 2021-01-21 08:00:29 Test Item Value Reference Range Interpretation Comme nts CULTURE (BEAKER) (test code = 1095) No growth in 5 days BLOOD [id number] 08:00:29 Test Item Value Reference Range Interpretation Comments CULTURE (BEAKER) (test No growth in 5 days code = 1095) BASIC METABOLIC [id number] 05:24:21 Test Item Value Reference Range Interpretation Comments SODIUM (BEAKER) 139 meq/L 136-145 (test code = 381) POTASSIUM (BEAKER) 4.3 meq/L 3.5-5.1 Specimen slightly (test code = 379) hemolyzed CHLORIDE (BEAKER) 106 meq/L 98-107 (test code = 382) CO2 (BEAKER) (test 22 meq/L 22-29 code = 355) BLOOD UREA NITROGEN 7 mg/dL 7-21 (BEAKER) (test code = 354) CREATININE (BEAKER) 0.71 mg/dL 0.57-1.25 Specimen slightly (test code = 358) hemolyzed GLUCOSE RANDOM 88 mg/dL 70-105 (BEAKER) (test code = 652) CALCIUM (BEAKER) 8.8 mg/dL 8.4-10.2 (test code = 697) EGFR (BEAKER) (test 123 mL/min/1.73 ESTIM ATED GFR IS code = 1092) sq m NOT ACCURATE CREATININE CLEARANCE IN PREDICTING GLOMERULAR FILTRATION RATE . ESTIMATED GFR I S NOT APPLICABLE FOR DIALYSIS PATIEN TS. Business Functional Analyst ID - CYNTHIA MCBC W/PLT COUNT & AUTO [id number] 05:00:23 Test Item Value Reference Range Interpretation Comments WHITE BLOOD CELL COUNT (BEAKER) 7.4 K/ L 3.5-10.5 (test code = 775) RED BLOOD CELL COUNT (BEAKER) 4.46 M/ L 4.63-6.08 L (test code = 761) HEMOGLOBIN (BEAKER) (test code = 13.3 GM/DL 13.7-17.5 L 410) HEMATOCRIT (BEAKER) (test code = 38.1 % 40.1-51.0 L 411) MEAN CORPUSCULAR VOLUME (BEAKER) 85.4 fL 79.0-92.2 (test code = 753) MEAN CORPUSCULAR HEMOGLOBIN 29.8 pg 25.7-32.2 (BEAKER) (test code = 751) MEAN CORPUSCULAR HEMOGLOBIN CONC 34.9 GM/DL 32.3-36.5 (BEAKER) (test code = 752) RED CELL DISTRIBUTION WIDTH 13.2 % 11.6-14.4 (BEAKER) (test code = 412) PLATELET COUNT (BEAKER) (test 210 K/CU MM 150-450 code = 756) MEAN PLATELET VOLUME (BEAKER) 9.6 fL 9.4-12.4 (test code = 754) NUCLEATED RED BLOOD CELLS 0 /100 WBC 0-0 (BEAKER) (test code = 413) NEUTROPHILS RELATIVE PERCENT 79 % (BEAKER) (test code = 429) LYMPHOCYTES RELATIVE PERCENT 10 % (BEAKER) (test code = 430) MONOCYTES RELATIVE PERCENT 9 % (BEAKER) (test code = 431) EOSINOPHILS RELATIVE PERCENT 1 % (BEAKER) (test code = 432) BASOPHILS RELATIVE PERCENT 0 % (BEAKER) (test code = 437) NEUTROPHILS ABSOLUTE COUNT 5.89 K/ L 1.78-5.38 H (BEAKER) (test code = 670) LYMPHOCYTES ABSOLUTE COUNT 0.71 K/ L 1.32-3.57 L (BEAKER) (test code = 414) MONOCYTES ABSOLUTE COUNT (BEAKER) 0.70 K/ L 0.30-0.82 (test code = 415) EOSINOPHILS ABSOLUTE COUNT 0.06 K/ L 0.04-0.54 (BEAKER) (test code = 416) BASOPHILS ABSOLUTE COUNT (BEAKER) 0.02 K/ L 0.01-0.08 (test code = 417) IMMATURE GRANULOCYTES-RELATIVE 1 % 0-1 PERCENT (BEAKER) (test code = 2801) COMPREHENSIVE METABOLIC [id number] 06:23:41 Test Item Value Reference Range Interpretation Comments TOTAL PROTEIN 6.4 gm/dL 6.0-8.3 (BEAKER) (test code = 770) ALBUMIN (BEAKER) 3.2 g/dL 3.5-5.0 L (test code = 1145) ALKALINE PHOSPHATASE 66 U/L 40-150 (BEAKER) (test code = 346) BILIRUBIN TOTAL 1.2 mg/dL 0.2-1.2 (BEAKER) (test code = 377) SODIUM (BEAKER) (test 135 meq/L 136-145 L code = 381) POTASSIUM (BEAKER) 3.9 meq/L 3.5-5.1 (test code = 379) CHLORIDE (BEAKER) 101 meq/L 98-107 (test code = 382) CO2 (BEAKER) (test 24 meq/L 22-29 code = 355) BLOOD UREA NITROGEN 9 mg/dL 7-21 (BEAKER) (test code = 354) CREATININE (BEAKER) 0.87 mg/dL 0.57-1.25 (test code = 358) GLUCOSE RANDOM 95 mg/dL 70-105 (BEAKER) (test code = 652) CALCIUM (BEAKER) 8.6 mg/dL 8.4-10.2 (test code = 697) AST (SGOT) (BEAKER) 15 U/L 5-34 (test code = 353) ALT (SGPT) (BEAKER) 13 U/L 6-55 (test code = 347) EGFR (BEAKER) (test 97 mL/min/1.73 ESTIMA GALILEA GFR IS code = 1092) sq m NOT ACCURATE CREATININE CLEARANCE IN PREDICTING GLOMERULAR FILTRATION RATE . ESTIMATED GFR I S NOT APPLICABLE FOR DIALYSIS PATIEN TS. Business Functional Analyst ID - CYNTHIA MCBC (HEMOGRAM ONLY)2021-01-18 04:29:37 Test Item Value Reference Range Interpretation Comments WHITE BLOOD CELL COUNT (BEAKER) 8.2 K/ L 3.5-10.5 (test code = 775) RED BLOOD CELL COUNT (BEAKER) 4.69 M/ L 4.63-6.08 (test code = 761) HEMOGLOBIN (BEAKER) (test code = 13.7 GM/DL 13.7-17.5 410) HEMATOCRIT (BEAKER) (test code = 41.5 % 40.1-51.0 411) MEAN CORPUSCULAR VOLUME (BEAKER) 88.5 fL 79.0-92.2 (test code = 753) MEAN CORPUSCULAR HEMOGLOBIN 29.2 pg 25.7-32.2 (BEAKER) (test code = 751) MEAN CORPUSCULAR HEMOGLOBIN CONC 33.0 GM/DL 32.3-36.5 (BEAKER) (test code = 752) RED CELL DISTRIBUTION WIDTH 13.1 % 11.6-14.4 (BEAKER) (test code = 412) PLATELET COUNT (BEAKER) (test 193 K/CU MM 150-450 code = 756) MEAN PLATELET VOLUME (BEAKER) 9.4 fL 9.4-12.4 (test code = 754) NUCLEATED RED BLOOD CELLS 0 /100 WBC 0-0 (BEAKER) (test code = 413) [id number] 06:56:42 Test Item Value Reference Range Interpretation Comments PHOSPHORUS (BEAKER) (test code = 2.4 mg/dL 2.3-4.7 604) Business Functional Analyst ID - MARY GHEPATIC FUNCTION [id number] 06:56:42 Test Item Value Reference Range Interpretation Comments TOTAL PROTEIN (BEAKER) (test code = 6.2 gm/dL 6.0-8.3 770) ALBUMIN (BEAKER) (test code = 1145) 3.3 g/dL 3.5-5.0 L BILIRUBIN TOTAL (BEAKER) (test code 1.3 mg/dL 0.2-1.2 H = 377) BILIRUBIN DIRECT (BEAKER) (test 0.5 mg/dL 0.1-0.5 code = 706) ALKALINE PHOSPHATASE (BEAKER) (test 56 U/L 40-150 code = 346) AST (SGOT) (BEAKER) (test code = 12 U/L 5-34 353) ALT (SGPT) (BEAKER) (test code = 16 U/L 6-55 347) Business Functional Analyst ID - MARY GBASIC METABOLIC [id number] 06:56:41 Test Item Value Reference Range Interpretation Comments SODIUM (BEAKER) 137 meq/L 136-145 (test code = 381) POTASSIUM (BEAKER) 4.4 meq/L 3.5-5.1 (test code = 379) CHLORIDE (BEAKER) 103 meq/L 98-107 (test code = 382) CO2 (BEAKER) (test 24 meq/L 22-29 code = 355) BLOOD UREA NITROGEN 15 mg/dL 7-21 (BEAKER) (test code = 354) CREATININE (BEAKER) 0.83 mg/dL 0.57-1.25 (test code = 358) GLUCOSE RANDOM 100 mg/dL 70-105 (BEAKER) (test code = 652) CALCIUM (BEAKER) 8.9 mg/dL 8.4-10.2 (test code = 697) EGFR (BEAKER) (test 103 mL/min/1.73 ESTIM ATED GFR IS code = 1092) sq m NOT ACCURATE CREATININE CLEARANCE IN PREDICTING GLOMERULAR FILTRATION RATE . ESTIMATED GFR I S NOT APPLICABLE FOR DIALYSIS PATIEN TS. Business Functional Analyst ID - MARY [id number] 06:56:41 Test Item Value Reference Range Interpretation Comments MAGNESIUM (BEAKER) (test code = 1.9 mg/dL 1.6-2.6 627) Business Functional Analyst ID - MARY GCBC W/PLT COUNT & AUTO [id number] 06:44:39 Test Item Value Reference Range Interpretation Comments WHITE BLOOD CELL COUNT (BEAKER) 9.9 K/ L 3.5-10.5 (test code = 775) RED BLOOD CELL COUNT (BEAKER) 4.63 M/ L 4.63-6.08 (test code = 761) HEMOGLOBIN (BEAKER) (test code = 13.7 GM/DL 13.7-17.5 410) HEMATOCRIT (BEAKER) (test code = 40.6 % 40.1-51.0 411) MEAN CORPUSCULAR VOLUME (BEAKER) 87.7 fL 79.0-92.2 (test code = 753) MEAN CORPUSCULAR HEMOGLOBIN 29.6 pg 25.7-32.2 (BEAKER) (test code = 751) MEAN CORPUSCULAR HEMOGLOBIN CONC 33.7 GM/DL 32.3-36.5 (BEAKER) (test code = 752) RED CELL DISTRIBUTION WIDTH 13.3 % 11.6-14.4 (BEAKER) (test code = 412) PLATELET COUNT (BEAKER) (test 181 K/CU MM 150-450 code = 756) MEAN PLATELET VOLUME (BEAKER) 9.7 fL 9.4-12.4 (test code = 754) NUCLEATED RED BLOOD CELLS 0 /100 WBC 0-0 (BEAKER) (test code = 413) NEUTROPHILS RELATIVE PERCENT 84 % (BEAKER) (test code = 429) LYMPHOCYTES RELATIVE PERCENT 10 % (BEAKER) (test code = 430) MONOCYTES RELATIVE PERCENT 6 % (BEAKER) (test code = 431) EOSINOPHILS RELATIVE PERCENT 0 % (BEAKER) (test code = 432) BASOPHILS RELATIVE PERCENT 0 % (BEAKER) (test code = 437) NEUTROPHILS ABSOLUTE COUNT 8.31 K/ L 1.78-5.38 H (BEAKER) (test code = 670) LYMPHOCYTES ABSOLUTE COUNT 0.96 K/ L 1.32-3.57 L (BEAKER) (test code = 414) MONOCYTES ABSOLUTE COUNT (BEAKER) 0.57 K/ L 0.30-0.82 (test code = 415) EOSINOPHILS ABSOLUTE COUNT 0.01 K/ L 0.04-0.54 L (BEAKER) (test code = 416) BASOPHILS ABSOLUTE COUNT (BEAKER) 0.02 K/ L 0.01-0.08 (test code = 417) IMMATURE GRANULOCYTES-RELATIVE 1 % 0-1 PERCENT (BEAKER) (test code = 2801) BASIC METABOLIC [id number] 06:51:24 Test Item Value Reference Range Interpretation Comments SODIUM (BEAKER) 137 meq/L 136-145 (test code = 381) POTASSIUM (BEAKER) 4.0 meq/L 3.5-5.1 (test code = 379) CHLORIDE (BEAKER) 105 meq/L 98-107 (test code = 382) CO2 (BEAKER) (test 24 meq/L 22-29 code = 355) BLOOD UREA NITROGEN 18 mg/dL 7-21 (BEAKER) (test code = 354) CREATININE (BEAKER) 0.84 mg/dL 0.57-1.25 (test code = 358) GLUCOSE RANDOM 101 mg/dL 70-105 (BEAKER) (test code = 652) CALCIUM (BEAKER) 8.2 mg/dL 8.4-10.2 L (test code = 697) EGFR (BEAKER) (test 101 mL/min/1.73 ESTIM ATED GFR IS code = 1092) sq m NOT ACCURATE CREATININE CLEARANCE IN PREDICTING GLOMERULAR FILTRATION RATE . ESTIMATED GFR I S NOT APPLICABLE FOR DIALYSIS PATIEN TS. Business Functional Analyst ID - DBCBC W/PLT COUNT & AUTO [id number] 06:46:51 Test Item Value Reference Range Interpretation Comments WHITE BLOOD CELL COUNT (BEAKER) 10.2 K/ L 3.5-10.5 (test code = 775) RED BLOOD CELL COUNT (BEAKER) 4.73 M/ L 4.63-6.08 (test code = 761) HEMOGLOBIN (BEAKER) (test code = 14.1 GM/DL 13.7-17.5 410) HEMATOCRIT (BEAKER) (test code = 41.3 % 40.1-51.0 411) MEAN CORPUSCULAR VOLUME (BEAKER) 87.3 fL 79.0-92.2 (test code = 753) MEAN CORPUSCULAR HEMOGLOBIN 29.8 pg 25.7-32.2 (BEAKER) (test code = 751) MEAN CORPUSCULAR HEMOGLOBIN CONC 34.1 GM/DL 32.3-36.5 (BEAKER) (test code = 752) RED CELL DISTRIBUTION WIDTH 13.2 % 11.6-14.4 (BEAKER) (test code = 412) PLATELET COUNT (BEAKER) (test 193 K/CU MM 150-450 code = 756) MEAN PLATELET VOLUME (BEAKER) 9.7 fL 9.4-12.4 (test code = 754) NUCLEATED RED BLOOD CELLS 0 /100 WBC 0-0 (BEAKER) (test code = 413) NEUTROPHILS RELATIVE PERCENT 79 % (BEAKER) (test code = 429) LYMPHOCYTES RELATIVE PERCENT 13 % (BEAKER) (test code = 430) MONOCYTES RELATIVE PERCENT 7 % (BEAKER) (test code = 431) EOSINOPHILS RELATIVE PERCENT 0 % (BEAKER) (test code = 432) BASOPHILS RELATIVE PERCENT 0 % (BEAKER) (test code = 437) NEUTROPHILS ABSOLUTE COUNT 8.04 K/ L 1.78-5.38 H (BEAKER) (test code = 670) LYMPHOCYTES ABSOLUTE COUNT 1.32 K/ L 1.32-3.57 (BEAKER) (test code = 414) MONOCYTES ABSOLUTE COUNT (BEAKER) 0.74 K/ L 0.30-0.82 (test code = 415) EOSINOPHILS ABSOLUTE COUNT 0.01 K/ L 0.04-0.54 L (BEAKER) (test code = 416) BASOPHILS ABSOLUTE COUNT (BEAKER) 0.02 K/ L 0.01-0.08 (test code = 417) IMMATURE GRANULOCYTES-RELATIVE 1 % 0-1 PERCENT (BEAKER) (test code = 2801) [id number] 06:42:58 Test Item Value Reference Range Interpretation Comments PROTIME (BEAKER) (test 14.4 seconds 11.9-14.2 H code = 759) INR (BEAKER) (test 1.14 See_Comment [Automat ed code = 370) message] The sy stem which generated this result transmitted reference range : <=5.90. The reference range was not used to interpret this result as normal/abnormal . PARTIAL THROMBOPLASTIN 33.9 seconds 22.5-36.0 TIME (ANNE MARIEAKER) (test code = 760) RECOMMENDED COUMADIN/WARFARIN INR THERAPY RANGESSTANDARD DOSE: 2.0 - 3.0 Includes: PROPHYLAXIS forvenous thrombosis, systemic embolization; TREATMENT for venous thrombosis and/or pulmonary embolus.HIGH RISK: Target INR is 2.5-3.5 for patients with mechanical heart valves.COMP. METABOLIC PANEL ([id number])2020-12-08 00:02:21 Test Item Value Reference Range Interpretation Comments NA (test code = 138 mmol/L 135-145 2245167053) K (test code = 4.3 mmol/L 3.5-5.0 3254712300) CL (test code = 106 mmol/L 98-108 5616833569) CO2 TOTAL (test code 26 mmol/L 23-31 = 5048380360) AGAP (test code = 2-16 7930681244) BUN (test code = 12 mg/dL 7-23 4703759052) GLUCOSE (test code = 108 mg/dL 70-110 4796665951) CREATININE (test code 0.85 mg/dL 0.60-1.25 = 3146710729) TOTAL BILI (test code 0.5 mg/dL 0.1-1.1 = 6188405636) CALCIUM (test code = 9.5 mg/dL 8.6-10.6 4162713949) T PROTEIN (test code 7.5 g/dL 6.3-8.2 = 1405392495) ALBUMIN (test code = 4.3 g/dL 3.5-5.0 8451123331) ALK PHOS (test code = 82 U/L 34-122 1321189115) ALTv (test code = 34 U/L 5-50 1742-6) AST(SGOT) (test code 25 U/L 13-40 = 9107896495) eGFR (test code = mL/min/1.73m2 9682410885) ELLIS (test code = ELLIS) Association of Glomerular Filtration Rate (GFR) and Staging of Kidney Disease* + + +- +| GFR (mL/min/1.73 m2) ?| With Kidney Damage ?| ?Without Kidney Damage+ ------+ ----+ ------+| ?>90 ?| ?Stage one ?| ? Normal ?+ -+ + -+| ?60-89 ?| ?Stage two ?| ? Decreased GFR ? + + +- +| ?30-59 ?| ?Stage three ?| ? Stage three ? + + +- +| ?15-29 ?| ?Stage four ? | ? Stage four ?+ -+ + -+| ?<15 (or dialysis) ? ?| ?Stage five ? | ? Stage five ?+ -+ + -+ *Each stage assumes the associated GFR level [...] or urine or abnormalities in imaging tests). [facility] Test Item Value Reference Range Interpretation Comments LIPASE (test code = 7042170446) 85 U/L 0-220 Lab Interpretation (test code = Normal 63056-9) [facility] WITH [id number] 23:31:16 Test Item Value Reference Range Interpretation Comments WBC (test code = See_Comment [Automated 6553-2) message] The sy stem which generated this result transmitted reference range : 4.20 - 10.70 10*3/?L. The reference range was not used to interpret this result as normal/abnormal . RBC (test code = See_Comment H [Automated 057-8) message] The sy stem which generated this [...] (test code = 38.2 fL 38.5-51.6 L 86454-7) RDW-CV (test code = 12.5 % 12.1-15.4 788-0) PLT (test code = See_Comment [Automated 777-3) message] The sy stem which generated this result transmitted reference range : 150 - 328 10*3/ ?L. The reference r yamilet was not used to interpret this result as normal/abnormal . MPV (test code = 10.0 fL 9.8-13.0 24589-1) NRBC/100 WBC (test See_Comment [Automat ed code = [id number]) message] The system which generated this result transmitted reference range : 0.0 - 10.0 /100 WBCs. The refer ence range was not u sed to interpret th is result as normal/abnormal . NRBC x10^3 (test code <0.01 See_Comment [Auto mated = [id number]) message] The s ystem which generated this result transmitted reference range : 10*3/?L. The reference range was not used to interpret this result as normal/abnormal . GRAN MAT (NEUT) % 70.4 % (test code = 770-8) IMM GRAN % (test code 0.60 % = [id number]) LYMPH % (test code = 17.3 % 736-9) MONO % (test code = 10.6 % 5905-5) EOS % (test code = 0.6 % 713-8) BASO % (test code = 0.5 % 706-2) GRAN MAT x10^3(ANC) 6.84 10*3/uL 1.99-6.95 (test code = [id number]) IMM GRAN x10^3 (test 0.06 10*3/uL 0.00-0.06 code = [id number]) LYMPH x10^3 (test code 1.68 10*3/uL 1.09-3.23 = 731-0) MONO x10^3 (test code 1.03 10*3/uL 0.36-1.02 H = 742-7) EOS x10^3 (test code = 0.06 10*3/uL 0.06-0.53 711-2) BASO x10^3 (test code 0.05 10*3/uL 0.01-0.09 = 704-7) Lab Interpretation Abnormal (test code = 00618-9) [facility]"
[2021-01-29 16:30] LABS: Urine Blood Negative (Negative); Urine Glucose Negative (Negative); Urine Protein Negative (Negative); Urine Specific Gravity >=1.030 (1.005-1.030)
--- NOTE | 2021-01-29 17:08 | RAD REPORT ---
EXAM DESCRIPTION: CTAbdomen Pelvis W Contrast - 01/29/2021 4:58 pm CLINICAL HISTORY: lower abdominal pain COMPARISON: Abdomen Pelvis W Contrast dated 01/15/2021 TECHNIQUE: CT of the abdomen and pelvis was performed. All CT scans are performed using dose optimization technique as appropriate and may include automated exposure control or mA/KV adjustment according to patient size. FINDINGS: Lower chest: No acute abnormality. Liver: Too small to characterize liver lesions which are likely benign. Biliary: No biliary ductal dilatation. Stomach: No significant focal abnormality. Duodenum: No significant focal abnormality. Pancreas: No significant abnormality. Spleen: No significant abnormality. Adrenal: No suspicious lesions. Kidney/ureter: No hydronephrosis. No renal calculi. Retroperitoneum: No retroperitoneal adenopathy. Vascular: No aneurysm. Bowel: Reason sigmoid diverticulitis. Other diverticulum noted. Prior appendectomy. Peritoneum: Pelvic abscess measuring 5.3 x 4 cm.. Bladder: Nonspecific bladder wall thickening. Reproductive: No adnexal masses. Bones: No acute fracture. Other: n/a IMPRESSION: Enhancing fluid collection in the pelvis concerning for an abscess in the setting of sig moid diverticulitis.
[2021-01-29] MEDS ORDERED: Levofloxacin 750mg IV 750 MG/150 ML BAG IV ONE (17:28)
[2021-01-29] MEDS ORDERED: metroNIDAZOLE 500 MG TABLET ONE (17:37)
[2021-01-29 17:41] LABS: Absolute Lymphocytes (CBC) 1.9 K/uL (0.7-4.9); Basophils % 0.5 % (0-1.3); Hematocrit 41.4 % (39.6-49.0); Lymphocytes % 17.4 % (15.3-44.8); RBC Red Blood Cell Count 4.82 M/uL (4.33-5.43)
[2021-01-29 18:05] LABS: ALT/SGPT 50 U/L (12-78); AST/SGOT 19 U/L (15-37); Albumin 3.4 g/dL (3.4-5.0); Alkaline Phosphatase 80 U/L (45-117); BUN Blood Urea Nitrogen 12 mg/dL (7-18); Bicarbonate 29 mmol/L (21-32); Bilirubin Direct < 0.1 mg/dL (0-0.2); Bilirubin Total 0.3 mg/dL (0.2-1.0); Glucose Level 92 mg/dL (74-106); Lipase 97 U/L (73-393); Potassium 4.2 mmol/L (3.5-5.1); Protein, Total 7.7 g/dL (6.4-8.2); Sodium Level 139 mmol/L (136-145)
--- NOTE | 2021-01-29 18:06 | EDPHYS ---
Physician Documentation [facility] Name: Jaime Darden Age: 41 yrs Sex: Male : 1980 Arrival Date: 01/29/2021 Time: 14:35 Bed 2 Private MD: ED Physician Deon Russo HPI: 01/29 16:30 This 41 yrs old Male presents to ER via Ambulatory with complaints of r/o sepsis. jmm 16:30 The patient presents with abdominal pain in the lower abdomen. Onset: The jmm symptoms/episode began/occurred gradually, 3 day(s) ago. The symptoms do not radiate. Associated signs and symptoms: Pertinent negatives: fever. Is a 41-year-old male with a history of diverticulitis the presents emerged department with complaints of increasingly worsening lower abdominal/pelvic pain over the past 3 days. Patient approximately 2 weeks ago was transferred due to a ruptured diverticular abscess. Patient states that he was given IV antibiotics but there is no surgical procedure or interventional procedure performed. Patient was prescribed Augmentin and Flagyl. States the symptoms have increased over the past 3 days mainly with pain. Denies fever vomiting, diarrhea, chills.. Historical: - Allergies: 16:11 Tramadol HCl; jl7 - Home Meds: 16:12 Flexeril 10 mg Oral tab once daily [Active]; jl7 - PMHx: 16:11 Diverticulitis; tension headaches; jl7 - PSHx: 16:11 Appendectomy; jl7 - Immunization history:: Client reports receiving the 2nd dose of the Covid vaccine, Moderna. - Social history:: Smoking status: Patient denies any tobacco usage or history of. ROS: 16:30 Constitutional: Negative for fever, chills, and weight loss, Cardiovascular: Negative jmm for chest pain, palpitations, and edema, Respiratory: Negative for shortness of breath, cough, wheezing, and pleuritic chest pain. 16:30 Abdomen/GI: Positive for abdominal pain. 16:30 All other systems are negative. Exam: 16:30 Constitutional: This is a well developed, well nourished patient who is awake, alert, jmm and in no acute distress. Head/Face: atraumatic. Eyes: EOMI, no conjunctival erythema appreciated ENT: Moist Mucus Membranes Neck: Trachea midline, Supple Chest/axilla: Normal chest wall appearance and motion. Cardiovascular: Regular rate and rhythm. No edema appreciated Respiratory: Normal respirations, no respiratory distress appreciated 16:30 Back: Normal ROM Skin: General appearance color normal MS/ Extremity: Moves all extremities, no obvious deformities appreciated, no edema noted to the lower extremities Neuro: Awake and alert, normal gait Psych: Behavior is normal, Mood is normal, Patient is cooperative and pleasant 16:30 Abdomen/GI: Inspection: abdomen appears normal, Bowel sounds: normal, Palpation: soft, mild abdominal tenderness, in the suprapubic area and left lower quadrant. Vital Signs: 16:08 BP 127 / 94; Pulse 81; Resp 17 S; Temp 98.5(O); Pulse Ox 99% on R/A; Weight 86.18 kg; jl7 Height 5 ft. 10 in. (177.80 cm); Pain 3/10; 16:44 BP 118 / 80; Pulse 75; Resp 20; Pulse Ox 99% ; cs9 16:08 Body Mass Index 27.26 (86.18 kg, 177.80 cm) 7 MDM: 16:31 Patient medically screened. [facility] 17:51 Data reviewed: vital signs, nurses notes. Counseling: I had a detailed discussion with [facility] the patient and/or guardian regarding: the historical points, exam findings, and any diagnostic results supporting the discharge/admit diagnosis, radiology results. ED course: After reviewing CT results which revealed a large abscess in the pelvis. Discussed the patient with Dr. Rod whom recommended transferring the patient to [facility] in the [facility] again for reevaluation. I discussed this plan of care with the patient who declined transfer. Patient lives in [place] and is has a preference to go home with family support for further intervention. Patient will be prescribed oral antibiotics analgesics. Patient otherwise given strict return precautions. Patient understood and agrees plan of care.. 01/29 16:30 Order name: Urine Dipstick-Ancillary; Complete Time: 16:31 [facility] 01/29 17:17 Order name: Basic Metabolic Panel; Complete Time: 18:09 [facility] 01/29 16:31 Order name: CT Abd/Pelvis - IV Contrast Only; Complete Time: 17:16 [facility] 01/29 17:17 Order name: CBC with Diff; Complete Time: 17:54 [facility] 01/29 17:17 Order name: Hepatic Function; Complete Time: 18:09 [facility] 01/29 17:17 Order name: Lipase; Complete Time: 18:09 [facility] 01/29 17:17 Order name: IV Saline Lock; Complete Time: 17:28 [facility] 01/29 17:17 Order name: Labs collected and sent; Complete Time: 17:27 [facility] Administered Medications: 17:36 CANCELLED (Duplicate Order): Flagyl (metroNIDAZOLE) 500 mg 100 ml IVPB at 200 ml/hr [facility] once over 30 mins 17:41 Drug: LevaQUIN (levofloxacin) 750 mg Volume: 150 ml; Route: IVPB; Infused Over: 90 ll1 mins; Site: left antecubital; 17:41 Drug: Flagyl (metroNIDAZOLE) 500 mg Route: PO; ll1 Disposition: 20:09 Co-signature as Attending Physician, Deon Russo MD I agree with the assessment and kdr plan of care. Disposition Summary: 01/29/21 18:05 Discharge Ordered Location: Home [facility] Condition: Stable [facility] Diagnosis - Abdominal/intrapelvic abscess [facility] Followup: [facility] - With: Private Physician - When: 2 - 3 days - Reason: Recheck today's complaints, Continuance of care, Re-evaluation by your physician Discharge Instructions: - Discharge Summary Sheet [facility] Forms: - Medication Reconciliation Form [facility] - Thank You Letter [facility] - Antibiotic Education [facility] - Prescription Opioid Use [facility] Prescriptions: - levofloxacin 750 mg Oral tablet - take 1 tablet by ORAL route once daily for 10 days; 10 tablet; Refills: 0, [facility] Product Selection Permitted - Tylenol-Codeine #3 300 mg-30 mg Oral - take 1 tablet by ORAL route every 4-6 hours; 20 tablet; Refills: 0, Product [facility] Selection Permitted Signatures: Dispatcher [employer] EDDeon Herrera MD MD kdr Mickail, Joel, PA PA jm Franky Max RN RN jl7 Aida Rivera RN RN ll1 Corrections: (The following items were deleted from the chart) 17:36 17:23 Flagyl (metroNIDAZOLE) 500 mg 100 ml IVPB at 200 ml/hr once over 30 mins ordered. [facility]
--- NOTE | 2021-01-29 18:06 | ER ---
Nurse's Notes [facility] Name: Jaime Darden Age: 41 yrs Sex: Male : 1980 Arrival Date: 01/29/2021 Time: 14:35 Bed 2 Private MD: Diagnosis: Abdominal/intrapelvic abscess Presentation: 01/29 16:08 Chief complaint: Patient states: Transferred from here 2 weeks ago with a perforated 7 diverticula and an abscess, [facility] did not operate because they said it was in a tough spot. Lower abdominal pain started again yesterday morning, concerned the infection/abscess hasn't cleared up. Coronavirus screen: At this time, the client does not indicate any symptoms associated with coronavirus-19. Ebola Screen: No symptoms or risks identified at this time. Initial Sepsis Screen: Does the patient meet any 2 criteria? No. Patient's initial sepsis screen is negative. Does the patient have a suspected source of infection? No. Patient's initial sepsis screen is negative. Risk Assessment: Do you want to hurt yourself or someone else? Patient reports no desire to harm self or others. Onset of symptoms was January 28, 2021. 16:08 Method Of Arrival: Ambulatory [facility] 16:08 Acuity: FER 3 jl7 Triage Assessment: 16:12 General: Appears in no apparent distress. uncomfortable, Behavior is calm, cooperative, jl7 appropriate for age. Pain: Complains of pain in right lower quadrant and left lower quadrant Pain currently is 3 out of 10 on a pain scale. Neuro: Level of Consciousness is awake, alert, obeys commands, Oriented to person, place, time, situation. Cardiovascular: Patient's skin is warm and dry. Respiratory: Airway is patent Respiratory effort is even, unlabored, Respiratory pattern is regular, symmetrical. Derm: Skin is pink, warm \T\ dry. Historical: - Allergies: 16:11 Tramadol HCl; jl7 - Home Meds: 16:12 Flexeril 10 mg Oral tab once daily [Active]; jl7 - PMHx: 16:11 Diverticulitis; tension headaches; jl7 - PSHx: 16:11 Appendectomy; jl7 - Immunization history:: Client reports receiving the 2nd dose of the Covid vaccine, Moderna. - Social history:: Smoking status: Patient denies any tobacco usage or history of. Screenin:15 Abuse screen: Denies threats or abuse. Denies injuries from another. Nutritional bp screening: No deficits noted. Tuberculosis screening: No symptoms or risk factors identified. Fall Risk None identified. Assessment: 16:40 General: SEE TRIAGE PLAN. bp Vital Signs: 16:08 BP 127 / 94; Pulse 81; Resp 17 S; Temp 98.5(O); Pulse Ox 99% on R/A; Weight 86.18 kg; jl7 Height 5 ft. 10 in. (177.80 cm); Pain 3/10; 16:44 BP 118 / 80; Pulse 75; Resp 20; Pulse Ox 99% ; cs9 16:08 Body Mass Index 27.26 (86.18 kg, 177.80 cm) jl7 ED Course: 14:35 Patient arrived in ED. as 16:11 Triage completed. jl7 16:12 Arm band placed on right wrist. jl7 16:15 Patient has correct armband on for positive identification. Bed in low position. Call bp light in reach. Side rails up X2. 16:16 Refugio Benites PA is PHCP. [facility] 16:16 Deon Russo MD is Attending Physician. jmm 16:22 Aida Rivera, ROXANA is Primary Nurse. ll1 16:22 Patient placed in an exam room, on a stretcher. ll1 16:38 Inserted saline lock: 20 gauge in left antecubital area, using aseptic technique. Blood bp collected. 16:46 Primary Nurse role handed off by Aida Rivera, RN bp 16:46 Art Perez, ROXANA is Primary Nurse. bp 16:58 CT Abd/Pelvis - IV Contrast Only In Process Unspecified. EDMS Administered Medications: 17:36 CANCELLED (Duplicate Order): Flagyl (metroNIDAZOLE) 500 mg 100 ml IVPB at 200 ml/hr jmm once over 30 mins 17:41 Drug: LevaQUIN (levofloxacin) 750 mg Volume: 150 ml; Route: IVPB; Infused Over: 90 ll1 mins; Site: left antecubital; 17:41 Drug: Flagyl (metroNIDAZOLE) 500 mg Route: PO; ll1 Outcome: 18:05 Discharge ordered by . m 19:04 Patient left the ED. iw Signatures: Dispatcher [employer] EDMS Refugio Benites PA PA jmm Marcel, Madhuri as Jarrod, Ximena, RN RN iw Franky Max RN RN jl7 Art Perez, RN RN bp Aida Rivera RN RN ll1 Otis, Carlotta 9
[2021-01-29 19:13] VITALS: TEMP 98.5; O2SAT 99
[2021-01-29 19:15] VITALS: BP 118/80
== END 2021-01-29 19:04 | disposition home or self-care (01) ==
LOC: ER 14:33
DX: K65.1 Peritoneal abscess (principal)
CPT/HCPCS: 85025; 80048; 36415; 82565; 80076; 81003; 83690; 74177; 96374; 99284; Q9967; 90714